=== PATIENT | female | born 1965 | race Caucasian/White ===

== ENCOUNTER 2016-02-02 22:24 | Inpatient (IN) | payer OTHER ==
[~2016-02-02] VITALS: Ht 167.6 cm; Wt 76.4 kg
[2016-02-02 23:30] VITALS: BP 110/88; PULSE 90; RESP 18; TEMP 97.9
[2016-02-03] MEDS ORDERED: LORazepam 2 MG/ML VIAL - age > 65 yrs IM PRN (00:15)
[2016-02-03] MEDS ORDERED: ALUMINUM/MAGNESIUM/SIMETH 30 ML CUP PO PRN (00:15)
[2016-02-03] MEDS ORDERED: MAGNESIUM HYDROXIDE SUSP 30 ML CUP PO PRN (00:15)
[2016-02-03 07:19] LABS: AUTOMATED NEUTROPHIL # 6.9 TH/MM3 (1.8-7.7); BASOPHIL # 0.1 TH/MM3 (0-0.2); BASOPHIL % 0.7 % (0.0-2.0); EOSINOPHIL # 0.1 TH/MM3 (0-0.4); EOSINOPHIL % 1.3 % (0.0-4.0); HEMATOCRIT 42.5 % (35.0-46.0); HEMO FLAGS DIFF FINAL; LYMPH % 26.4 % (9.0-44.0); LYMPHOCYTE # 2.8 TH/MM3 (1.0-4.8); MEAN CELL VOLUME 88.9 FL (80.0-100.0); MEAN CORPUSCULAR HGB CONC 33.8 % (32.0-36.0); MONO % 6.1 % (0.0-8.0); NEUT % 65.5 % (16.0-70.0); PLATELET COUNT 220 TH/MM3 (150-450); RED BLOOD COUNT 4.78 MIL/MM3 (4.00-5.30); RED CELL DISTRIBUTION WIDTH 15.6 % (11.6-17.2); WHITE BLOOD COUNT 10.6 TH/MM3 (4.0-11.0)
[2016-02-03 07:51] LABS: ALKALINE PHOSPHATASE 68 U/L (45-117); ALT (GPT) 15 U/L (10-53); ANION GAP 5 MEQ/L (5-15); AST (GOT) 11 U/L (15-37); BICARBONATE 27.2 MEQ/L (21.0-32.0); BLOOD UREA NITROGEN 24 MG/DL (7-18); CHLORIDE 106 MEQ/L (98-107); GLOMERULAR FILTRATION RATE 51 ML/MIN (>89); POTASSIUM 4.5 MEQ/L (3.5-5.1); SODIUM (NA) 138 MEQ/L (136-145); TOTAL BILIRUBIN ADULT 0.4 MG/DL (0.2-1.0)
[2016-02-03] MEDS: LORazepam 0.5 MG TAB age > 65 yrs PO PRN ×2 (08:43→08:49)
[2016-02-03] MEDS ORDERED: FLUTICASONE PROPIONATE 110 MCG/ACT 12 GM INHALER INH PRN (11:00)
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
[2016-02-03] MEDS: NICOTINE 21 MG/24 HR PATCH TD SCH ×2 (12:07→13:09)
[2016-02-03] MEDS: clonazePAM 0.5 MG TAB PO PRN (12:59)
--- NOTE | 2016-02-03 13:16 | PD.CONS ---
HPI Service [facility] Consult Requested By Dr. Solorzano Reason for Consult Decreased GFR Primary Care Physician No Primary Care Physician Diagnoses: History of Present Illness This is a 50-year-old female patient with past medical history which includes PTSD, bipolar, fibromyalgia chronic neck and back pain and gestational diabetes. Patient is currently an inpatient psychiatric center we have been consulted for decreased GFR. Laboratory data reviewed BUN 24 creatinine 1.14 estimated GFR 51. Patient does report she is very thirsty has not been drinking enough lately clinically appears dry with dry mucous membranes and sunken eyes. Patient denies dysuria or increased urinary frequency feels that she may be getting a UTI as she is not been drinking enough. Patient reports one episode of soft stool last night but denies diarrhea patient also denies nausea or vomiting, chest pain shortness of breath fevers or chills. Review of Systems Other All other systems reviewed and negative except as mentioned in history of present illness Past Family Social History Allergies: Coded Allergies: Benadryl (Verified Allergy, Intermediate, 02/03/16) VERIFIED WITH PATIENT Past Medical History PTSD, bipolar, fibromyalgia chronic neck and back pain and gestational diabetes Past Surgical History Cervical fusion, D&C Reported Medications 1. Amitriptyline 50 mg at bedtime 2. Klonopin 0.5 mg twice daily as needed for anxiety 3. Lexapro 20 mg daily 4. Flovent 2 puffs twice daily as needed for shortness of breath 5. Fluticasone 50 mcg per inhalation daily one spray daily 6. Latuda 80 mg daily with dinner 7. Mobic 15 mg daily 8. Tizanidine 4 mg every 8 hours as needed for muscle spasm 9. Trazodone 100 mg at bedtime Family History Both mother and sister have psychiatric illness Grandparents had diabetes mellitus 2 Father secondary to [place] Social History Patient denies EtOH use or illicit drug use Patient reports making 2 packs a day for the past 38 years Physical Exam Vital Signs Vital Signs Date Time Temp Pulse Resp B/P Pulse Ox O2 Delivery O2 Flow Rate FiO2 02/02/16 23:30 97.9 90 18 110/88 Physical Exam GENERAL: This is a well-nourished, well-developed patient, in no apparent distress. Clinically appears dry SKIN: No rashes, ecchymoses or lesions. Cool and dry. HEAD: Atraumatic. Normocephalic. No temporal or scalp tenderness. EYES: Appear sunken. Extraocular motions intact. No scleral icterus. No injection or drainage. ENT: Nose without bleeding, purulent drainage or septal hematoma. Throat without erythema, tonsillar hypertrophy or exudate. Uvula midline. Airway patent. Mucous membranes are dry NECK: Trachea midline. No JVD or lymphadenopathy. Supple, nontender, no meningeal signs. CARDIOVASCULAR: Regular rate and rhythm without murmurs, gallops, or rubs. RESPIRATORY: Clear to auscultation. Breath sounds equal bilaterally. No wheezes , rales, or rhonchi. GASTROINTESTINAL: Abdomen soft, non-tender, nondistended. No hepato-splenomegaly , or palpable masses. No guarding. MUSCULOSKELETAL: Extremities without clubbing, cyanosis, or edema. No joint tenderness, effusion, or edema noted. No calf tenderness. Negative Homans sign bilaterally. NEUROLOGICAL: Awake and alert. No focal deficits noted Motor and sensory grossly within normal limits. Five out of 5 muscle strength in all muscle groups. Soft speech. Laboratory Laboratory Tests Test 02/03/16 06:47 White Blood Count 10.6 Red Blood Count 4.78 Hemoglobin 14.4 Hematocrit 42.5 Mean Corpuscular Volume 88.9 Mean Corpuscular Hemoglobin 30.0 Mean Corpuscular Hemoglobin 33.8 Concent Red Cell Distribution Width 15.6 Platelet Count 220 Mean Platelet Volume 9.3 Neutrophils (%) (Auto) 65.5 Lymphocytes (%) (Auto) 26.4 Monocytes (%) (Auto) 6.1 Eosinophils (%) (Auto) 1.3 Basophils (%) (Auto) 0.7 Neutrophils # (Auto) 6.9 Lymphocytes # (Auto) 2.8 Monocytes # (Auto) 0.6 Eosinophils # (Auto) 0.1 Basophils # (Auto) 0.1 CBC Comment DIFF FINAL Differential Comment Sodium Level 138 Potassium Level 4.5 Chloride Level 106 Carbon Dioxide Level 27.2 Anion Gap 5 Blood Urea Nitrogen 24 Creatinine 1.14 Estimat Glomerular Filtration 51 Rate Random Glucose 99 Calcium Level 9.1 Total Bilirubin 0.4 Aspartate Amino Transf 11 (AST/SGOT) Alanine Aminotransferase 15 (ALT/SGPT) Alkaline Phosphatase 68 Total Protein 7.4 Albumin 3.8 Beta HCG, Qualitative LESS THAN 1 Result Diagram: 02/03/16 0647 02/03/16 0647 Assessment and Plan Assessment and Plan This is a 50-year-old female patient with past medical history which includes PTSD, bipolar, fibromyalgia chronic neck and back pain and gestational diabetes. Patient is currently an inpatient psychiatric center we have been consulted for decreased GFR. Laboratory data reviewed BUN 24 creatinine 1.14 estimated GFR 51. Decreased GFR likely psychiatric to dehydration Encouraged increase by mouth fluid intake add Gatorade and bottled water to each tray Recheck BMP in a.m. also check UA C&S if indicated Tobacco abuse Counseled patient on health risk of tobacco use encouraged patient to quit smoking Suicidal ideations, PTSD, bipolar- management per psychiatric team DVT prophylaxis patient is ambulatory Thank you for the consultation and for allowing us to dissipate. This patient. Discussed plan of care with patient and RN Written by Christina Urbano, acting as scribe for Dr. Neely on 02/03/16 at 13:20. The documentation accurately reflects the work performed [id number] by me on 02/03/16 at 13:20. Christina Urbano Feb 03, 2016 13:16 Hnoey Neely MD Feb 03, 2016 14:48
[2016-02-03 15:44] LABS: BACTERIA, URINE RARE /hpf; BLOOD, URINE NEG (NEG); COMMENT (UR) CULT NOT INDICATED; CULTURE IF INDICATED CULT NOT INDICATED; GLUCOSE,URINE NEG (NEG); HYALINE CAST, URINE 1 /lpf (RARE); KETONE, URINE NEG (NEG); MUCUS URINE FEW /lpf (OCC); NITRITE,URINE NEG (NEG); SQUAMOUS EPITHELIAL CELL URINE 5 /hpf (0-5); URINE COLOR YELLOW (YELLW/STRAW)
[2016-02-03] MEDS: LURASIDONE 80 MG TAB PO SCH (18:00)
[2016-02-03 19:25] VITALS: BP 105/72; PULSE 106; RESP 18; TEMP 98; O2SAT 98
[2016-02-03] MEDS: traZODone HCL 100 MG TAB PO SCH (21:00)
[2016-02-03] MEDS ORDERED: AMITRIPTYLINE HCL 50 MG TAB PO SCH (21:00)
[2016-02-04] MEDS: traZODone HCL 50 MG TAB PO PRN (00:18)
[2016-02-04] MEDS: clonazePAM 0.5 MG TAB PO PRN ×3 (01:12→23:15)
[2016-02-04] MEDS: ACETAMINOPHEN 325 MG TAB PO PRN ×2 (03:41→20:10)
[2016-02-04 05:57] VITALS: BP 118/84; PULSE 105; RESP 18; TEMP 98; O2SAT 100
[2016-02-04 07:56] LABS: BICARBONATE 27.1 MEQ/L (21.0-32.0); POTASSIUM 4.1 MEQ/L (3.5-5.1)
[2016-02-04] MEDS: ESCITALOPRAM OXALATE 20 MG TAB PO SCH (08:53)
[2016-02-04] MEDS: FLUTICASONE PROPIONATE 50 MCG/ACT 16 GM NASAL SPRAY NASAL SCH (08:54)
[2016-02-04] MEDS: NICOTINE 21 MG/24 HR PATCH TD SCH (08:54)
[2016-02-04] MEDS: REMOVE OLD PATCH TD SCH (09:00)
--- NOTE | 2016-02-04 10:33 | HHI.PYPN ---
Subjective Remarks Patient seen and examined with counselor and nursing staff. Chart reviewed. Case discussed with nursing staff who reports patient is upset that her Klonopin dose isn't higher. Patient leads off our discussion today with a request to titrate her Klonopin dose. I have reviewed her controlled substances database report with the patient and I note that she was receiving Klonopin 0.5 mg enough for [address] Duval and the dose was only increased to 1 mg 3 times a day by the physician who apparently saw the patient on the other inpatient psychiatric unit she had been hospitalized on. The prescriptions from Dr. Duval are of small quantity and there are gaps in the refill pattern. She complains of difficulty sleeping. Remains a little dysphoric. No SI or HI. No side effects from medications. Review of Systems Other No physical complaints today Objective Alert: Yes [place]: Person, Place, Date Mood: Calm Affect: Blunted (somewhat dysphoric) Memory Intact: Comment (seems intact on clinical exam) Hallucinations: Other (No AVH) Delusions: No Delusion Type: Other (No delusions) Suicidal: Ideation (Denies SI) Homicidal: Ideation (Denies HI) Insight/Judgement Fair Remarks No motoric abnormalities noted. TP linear, a little perseverative on the benzos. Labs Test 02/03/16 02/04/16 15:00 07:04 Urine Color YELLOW Urine Turbidity CLEAR Urine pH 6.0 Urine Specific [place] 1.020 Urine Protein NEG mg/dL Urine Glucose (UA) NEG mg/dL Urine Ketones NEG mg/dL Urine Occult Blood NEG Urine Nitrite NEG Urine Bilirubin NEG Urine Urobilinogen LESS THAN 2.0 MG/DL Urine Leukocyte Esterase TRACE Urine RBC 2 /hpf Urine WBC 4 /hpf Urine Squamous Epithelial 5 /hpf Cells Urine Bacteria RARE /hpf Urine Hyaline Casts 1 /lpf Urine Mucus FEW /lpf Microscopic Urinalysis Comment CULT NOT INDICATED Sodium Level 139 MEQ/L Potassium Level 4.1 MEQ/L Chloride Level 103 MEQ/L Carbon Dioxide Level 27.1 MEQ/L Anion Gap 9 MEQ/L Blood Urea Nitrogen 19 MG/DL Creatinine 1.03 MG/DL Estimat Glomerular Filtration 57 ML/MIN Rate Random Glucose 102 MG/DL Calcium Level 9.5 MG/DL Labs reviewed. GFR a little better. Urinalysis fairly bland. Vitals/IOs Vital Signs Date Time Temp Pulse Resp B/P Pulse Ox O2 Delivery O2 Flow Rate FiO2 02/04/16 05:57 98.0 105 18 118/84 100 Assessment & Plan Problem List: (1) Adjustment disorder with mixed disturbance of emotions and conduct ICD Code: F43.25 Assessment & Plan Patient is requesting additional hypnotic effect. I will titrate her Elavil to 75 mg at bedtime as this may help both with sleep and mood. Continue other medications as ordered. Appreciate hospitalist consult input. Continue other care as ordered. Patient may be transferred to [facility] unit. Justification for Cont. Inpt. Medication changes. Complicating conditions. Monitoring for safety, but no evidence of any deficit so far. Discharge Planning Monitor over the weekend. Request HC Surrog/Guard Advoc?: No Dilshad Solorzano MD Feb 04, 2016 10:33
--- NOTE | 2016-02-04 15:13 | HHI.PR ---
Subjective Remarks Follow-up for decreased GFR No overnight events, has been drinking water and Gatorade. No shortness of breath. Objective Vitals Vital Signs Date Time Temp Pulse Resp B/P Pulse Ox O2 Delivery O2 Flow Rate FiO2 02/04/16 05:57 98.0 105 18 118/84 100 02/03/16 19:25 98.0 106 18 105/72 98 Result Diagram: 02/03/16 0647 02/04/16 0704 Objective Remarks Not in distress, well-nourished, looks stated age PERRL, pink conjunctiva without injection, anicteric Nose without bleeding, airway patent, oropharynx clear Supple neck, no masses or thyromegaly, trachea midline Normal rate and regular rhythm, no murmurs gallops or rubs appreciated. Clear to auscultation and symmetric bilaterally, normal respiratory effort. Normal bowel sounds, soft, non-tender, nondistended, no guarding. Extremities without clubbing, cyanosis, or edema. No rash of generalized distribution. Skin is warm and dry. AAO x3, no cranial nerve deficits, moves all 4 extremities, no focal neurologic deficits Normal mood, appropriate affect A/P Assessment and Plan This is a 50-year-old female patient with past medical history which includes PTSD, bipolar, fibromyalgia chronic neck and back pain and gestational diabetes. Patient is currently an inpatient psychiatric center we have been consulted for decreased GFR. Laboratory data reviewed BUN 24 creatinine 1.14 estimated GFR 51. Decreased GFR likely psychiatric to dehydration Encouraged increase by mouth fluid intake, repeat GFR is stable and creatinine stable. Patient may have chronic kidney disease stage II, I doubt though with out proteinuria, encourage oral intake. Follow-up as outpatient. Tobacco abuse Counseled patient on health risk of tobacco use encouraged patient to quit smoking Suicidal ideations, PTSD, bipolar- management per psychiatric team DVT prophylaxis patient is ambulatory We will sign off. Please call with questions Honey Neely MD Feb 04, 2016 15:13
[2016-02-04] MEDS: LURASIDONE 80 MG TAB PO SCH (16:51)
[2016-02-04] MEDS: AMITRIPTYLINE HCL 75 MG TAB PO SCH (22:06)
[2016-02-04] MEDS: traZODone HCL 100 MG TAB PO SCH (22:06)
[2016-02-05 06:05] VITALS: BP 119/77; PULSE 90; RESP 18; TEMP 98.2; O2SAT 100
[2016-02-05] MEDS: NICOTINE 21 MG/24 HR PATCH TD SCH ×2 (09:00→10:24)
[2016-02-05] MEDS: REMOVE OLD PATCH TD SCH (09:00)
[2016-02-05] MEDS: FLUTICASONE PROPIONATE 50 MCG/ACT 16 GM NASAL SPRAY NASAL SCH (09:00)
[2016-02-05] MEDS: ESCITALOPRAM OXALATE 20 MG TAB PO SCH (09:23)
[2016-02-05] MEDS: ACETAMINOPHEN 325 MG TAB PO PRN (10:24)
[2016-02-05] MEDS: clonazePAM 0.5 MG TAB PO PRN (11:41)
--- NOTE | 2016-02-05 13:46 | HHI.PYPN ---
Subjective Remarks Patient seen and examined with nursing staff. Chart reviewed. Case discussed with nursing staff who reports patient is somewhat medication seeking for Klonopin. On my examination today, patient continues to complain of some anxiety, and we discuss nonmedication strategies for managing this. She is pleased to move to the lower acuity unit. She denies any SI or HI. She did sleep better with the adjustment in her Elavil dosing, and she denies side effects from medications. Hopeful for discharge tomorrow. Review of Systems Other No physical complaints today Objective Alert: Yes [place]: Person, Place, Date Mood: Calm Affect: Other (more reactive) Memory Intact: Comment (intact) Hallucinations: Other (no AVH) Delusions: No Delusion Type: Other (no delusional material) Suicidal: Ideation (denies suicidal ideation) Homicidal: Ideation (denies homicidal ideation) Insight/Judgement Fair Remarks Thought process linear. Speech within normal limits. Labs Labs reviewed. No new labs. Vitals/IOs Vital Signs Date Time Temp Pulse Resp B/P Pulse Ox O2 Delivery O2 Flow Rate FiO2 02/05/16 06:05 98.2 90 18 119/77 100 Assessment & Plan Problem List: (1) Adjustment disorder with mixed disturbance of emotions and conduct ICD Code: F43.25 Assessment & Plan Continue current psychotropics as ordered. Continue other medications and care as ordered. Justification for Cont. Inpt. Discharge planning Discharge Planning Monitor overnight Request HC Surrog/Guard Advoc?: No Dilshad Solorzano MD Feb 05, 2016 13:46
[2016-02-05] MEDS: LURASIDONE 80 MG TAB PO SCH (17:34)
[2016-02-05 18:00] VITALS: BP 124/95; PULSE 109; RESP 20; TEMP 99.1; O2SAT 99
[2016-02-05] MEDS: AMITRIPTYLINE HCL 75 MG TAB PO SCH (20:07)
[2016-02-05] MEDS: traZODone HCL 50 MG TAB PO PRN (20:10)
[2016-02-05] MEDS: traZODone HCL 100 MG TAB PO SCH (20:12)
[2016-02-06] MEDS: clonazePAM 0.5 MG TAB PO PRN ×2 (00:24→12:03)
[2016-02-06] MEDS: ACETAMINOPHEN 325 MG TAB PO PRN ×5 (00:31→20:28)
[2016-02-06 06:03] VITALS: BP 115/69; PULSE 105; RESP 18; TEMP 97.2
[2016-02-06] MEDS: ESCITALOPRAM OXALATE 20 MG TAB PO SCH (08:48)
[2016-02-06] MEDS: NICOTINE 21 MG/24 HR PATCH TD SCH (08:48)
[2016-02-06] MEDS: FLUTICASONE PROPIONATE 50 MCG/ACT 16 GM NASAL SPRAY NASAL SCH (08:49)
[2016-02-06] MEDS: REMOVE OLD PATCH TD SCH (09:00)
--- NOTE | 2016-02-06 14:02 | HHI.PYPN ---
Subjective Remarks Patient seen and examined with nursing staff. Chart reviewed. Case discussed with nursing staff. No behavioral problems reported. On my examination today, mood seems improved. Patient denies SI or HI or AVH. She denies side effects from medications. She is hopeful for discharge tomorrow. Review of Systems Other No physical complaints today Objective Alert: Yes [place]: Person, Place, Date Mood: Calm Affect: Other (fairly full and reactive today) Memory Intact: Comment (intact) Hallucinations: Other (denies) Delusions: No Delusion Type: Other (no delusions) Suicidal: Ideation (denies SI) Homicidal: Ideation (denies HI) Insight/Judgement Fair Remarks No abnormal motor movements noted. Labs Labs reviewed. No new labs. Vitals/IOs Vital Signs Date Time Temp Pulse Resp B/P Pulse Ox O2 Delivery O2 Flow Rate FiO2 02/06/16 06:03 97.2 105 18 115/69 02/05/16 18:00 99 Assessment & Plan Problem List: (1) Adjustment disorder with mixed disturbance of emotions and conduct ICD Code: F43.25 Assessment & Plan Continue current psychotropics as ordered. Continue other medications and care as ordered. Justification for Cont. Inpt. Monitor overnight. Discharge Planning Anticipate discharge tomorrow, Sunday barring some clinical worsening. Request HC Surrog/Guard Advoc?: No Dilshad Solorzano MD Feb 06, 2016 14:02
[2016-02-06 18:00] VITALS: BP 118/75; PULSE 100; RESP 17; TEMP 96.2; O2SAT 98
[2016-02-06] MEDS: LURASIDONE 80 MG TAB PO SCH (18:17)
[2016-02-06] MEDS: traZODone HCL 100 MG TAB PO SCH (20:15)
[2016-02-06] MEDS: AMITRIPTYLINE HCL 75 MG TAB PO SCH (20:15)
[2016-02-07] MEDS: clonazePAM 0.5 MG TAB PO PRN ×2 (00:06→12:03)
[2016-02-07] MEDS: ACETAMINOPHEN 325 MG TAB PO PRN ×2 (03:17→06:07)
[2016-02-07 06:04] VITALS: BP 92/66; PULSE 85; RESP 16; TEMP 97.4; O2SAT 97
[2016-02-07] MEDS: REMOVE OLD PATCH TD SCH (09:00)
[2016-02-07] MEDS: FLUTICASONE PROPIONATE 50 MCG/ACT 16 GM NASAL SPRAY NASAL SCH (09:10)
[2016-02-07] MEDS: ESCITALOPRAM OXALATE 20 MG TAB PO SCH (09:10)
[2016-02-07] MEDS: NICOTINE 21 MG/24 HR PATCH TD SCH (09:10)
[2016-02-07] MEDS ORDERED: LURA80 PO (10:16)
[2016-02-07] MEDS ORDERED: ESCI20TA PO (10:16)
[2016-02-07] MEDS ORDERED: Amitriptyline PO (10:16)
[2016-02-07] MEDS ORDERED: TRAZ50TA12 PO (10:16)
[2016-02-07] MEDS ORDERED: CLON.5 PO (10:16)
[2016-02-07] MEDS ORDERED: FLUTI110I INH (10:16)
[2016-02-07] MEDS ORDERED: FLUT50SP NASAL (10:16)
[2016-02-07] MEDS ORDERED: TIZA4 PO (10:16)
--- NOTE | 2016-02-07 10:16 | HHI.DS ---
Psychiatry Discharge Summary Inpatient Psychiatric care?: Yes Advance Directive: No Mental Health AdvanceDirective: No Health Care Proxy: No Admission Admission Date Feb 02, 2016 at 23:30 Admission Diagnosis: (1) Adjustment disorder with mixed disturbance of emotions and conduct ICD Code: F43.25 Brief History Ms. Tiwari is a 50-year-old female with a reported history of PTSD and bipolar disorder who presents to us in transfer from [facility] under a [place] ACT by [facility]'s Office alleging that Ms. Tiwari fled from her residence and told her mother that she was going to take all of her medications to kill herself. Officer also alleges that the patient told the officer that she was going to take her medications in excess since she did not want to live any more. I reviewed her documentation from outside hospital. Reviewing our electronic medical record here reviewed, it appears this is the patient's first visit to [facility]. The patient seen and examined with counselor Moraima and nurse Sav. Chart reviewed. Case discussed with nursing staff on the inpatient psychiatric unit. On my examination today, the patient presents as somewhat dysphoric. She says that she was just discharged from another inpatient psychiatric unit following a brief stay on the . She says that she went home to her house and got into an argument with her sister who she maintains is a drug addict. She says that she got upset and threatened to overdose on her medications to her mother because she was tired of her conflict with her sister. She denies any suicidal intent at that time. She denies any suicidal ideation now. She is somewhat dysphoric as I said and endorses poor sleep and seems anhedonic. She describes her inner mood state as agitated. No hopelessness, worthlessness or morbid guilt. She wants to live for her children and denies any homicidal ideation. She denies any audiovisual hallucinations and I can elicit no delusional beliefs. No hypomanic or manic symptoms evident at this time. The remainder of the psychiatric ROS is negative. Tobacco Use In Past 30 Days: 5 or More Cigarettes/Day Alcohol Use: Never Hospital Course Patient was admitted to a locked, inpatient psychiatric unit. A general medical consultation was obtained. Appropriate precautions were in place throughout patient's hospital stay. Patient was seen and examined daily on the unit by psychiatry and also visited by counselor. Medications were adjusted. Patient tolerated medications well without side effects. Patient had improvement in her presenting psychiatric symptomatology during the course of her hospital stay. There was no evidence of any suicidality or homicidality on the inpatient unit. Patient remained in good behavioral control and was medication compliant. She was able to be transferred to the lower acuity inpatient psychiatric unit. Collateral was obtained from patient's mother by the counselor. On the day of discharge: Case discussed with nursing staff. Per nursing staff, no behavioral issues noted. I note on review of the chart that the patient has been eating well and sleep has been fair. On my examination today, the patient presents as in good spirits. She requests that she be discharged from the inpatient psychiatric unit. She denies any SI or HI. She denies any AVH, and I can elicit no delusions. She is future oriented. She feels that her mood has subjectively improved. She is tolerating medications well without side effects. She has no physical complaints. Weighing the acute, chronic, and protective factors and based on the available evidence, I extruding press operator to a reasonable degree of medical certainty that the patient is at low imminent risk of harm to self or others from a mental illness as defined under the [place] act, and her level of function is adequate for outpatient care. Patient has maximized benefit from this inpatient psychiatric hospital stay. She will be discharged today in stable condition with psychiatric follow-up as arranged by counselor. Patient is also to follow-up with primary care. I have counseled the patient regarding warning signs for need to return to the psychiatric emergency room as part of the general safety plan. I have cautioned the patient in particular not to combine benzodiazepines with alcohol or opiates or other sedating medications or drugs. Patient reports that she has an adequate supply of all of her medications and so I will provide her only with the change to medication, namely the larger dose of Elavil. Results Blood Pressure 103/71 Vital Signs Date Time Temp Pulse Resp B/P Pulse Ox O2 Delivery O2 Flow Rate FiO2 02/07/16 06:04 97.4 85 16 97 Item Value Date Time White Blood Count 10.6 TH/MM3 02/03/16 0647 Hemoglobin 14.4 GM/DL 02/03/16 0647 Platelet Count 220 TH/MM3 02/03/16 0647 Sodium Level 139 MEQ/L 02/04/16 0704 Potassium Level 4.1 MEQ/L 02/04/16 0704 Chloride Level 103 MEQ/L 02/04/16 0704 Carbon Dioxide Level 27.1 MEQ/L 02/04/16 0704 Blood Urea Nitrogen 19 MG/DL H 02/04/16 0704 Creatinine 1.03 MG/DL H 02/04/16 0704 Aspartate Amino Transf (AST/SGOT) 11 U/L L 02/03/16 0647 Alanine Aminotransferase (ALT/SGPT) 15 U/L 02/03/16 0647 Alkaline Phosphatase 68 U/L 02/03/16 0647 Beta HCG, Qualitative LESS THAN 1 MIU/ML 02/03/16 0647 Summary of Procedures None done Imaging None done Pending results at discharge: No Medications # of Antipsychotic meds at D/C: 0 Approp Antipsych med options 1 - Minimum of three failed multiple trials of monotherapy. 2 - Documented plan to taper to monotherapy due to previous use of multiple meds OR cross-taper in progress at D/C. 3 - Documentation of augmentation of Clozapine. 4 - Justification other than those listed in allowable values 1-3, document here : Discharge Discharge Date: Feb 07, 2016 Discharge Diagnosis: (1) Adjustment disorder with mixed disturbance of emotions and conduct Diagnosis: Principal (stable) ICD Code: F43.25 GAF on discharge is 60 Mental Status Exam at Disch Patient is casually dressed. She is well groomed. She is awake and alert and oriented 3. No motoric abnormalities noted. Speech is within normal limits for rate, tone and volume. Language and fund of knowledge seem adequate and appropriate for age. Mood is reportedly improved versus admission and affect is fairly full and reactive. Thought process linear. No loosening of associations. No evident delusions. Denies audiovisual hallucinations. Denies suicidal or homicidal ideation. Insight and judgment are fair. Pt Condition on Discharge: Stable Discharge Disposition: Discharge Home Discharge Instructions Diet Instructions: As Tolerated, No Restrictions Activities you can perform: Weight Bearing as Arnoldo Scheduled Appointment: Jaylen Oliva Appointment Date: Feb 22, 2015 Appointment Time: 08:00 New Orders: BASIC METABOLIC PROF - 1 Week New Medications: Clonazepam (Klonopin) 0.5 Mg Tab 0.5 MG PO Q12HR Order is to update med rec only. Pt has adequate supply at home. PRN Anxiety Days 0 Ref 0 TAB Escitalopram (Escitalopram) 20 Mg Tab 20 MG PO DAILY Order is to update med rec only. Pt has adequate supply at home. Mental Health Days 0 Ref 0 TAB Fluticasone 12 GM Inh (Flovent Hfa 12 GM Inh) 110 Mcg/Act Inh 2 PUFF INH BID Order is to update med rec only. Pt has adequate supply at home. PRN SHORTNESS OF BREATH Days 0 Ref 0 INHALER Fluticasone Nasal [place] (Fluticasone Nasal [place]) 50 Mcg/Act Naspr 1 SPRAY NASAL DAILY Order is to update med rec only. Pt has adequate supply at home. Health Days 0 Ref 0 BOTTLE Lurasidone (Latuda) 80 Mg Tab 80 MG PO WITH DINNER Order is to update med rec only. Pt has adequate supply at home. Mental Health Days 0 Ref 0 TAB Tizanidine (Zanaflex) 4 Mg Tab 4 MG PO Q8H Order is to update med rec only. Pt has adequate supply at home. PRN Muscle spasm Days 0 Ref 0 TAB Trazodone (Trazodone) 50 Mg Tab 100 MG PO HS Order is to update med rec only. Pt has adequate supply at home. Insomnia Days 0 Ref 0 TAB ([Amitriptyline]) 75 MG TAB 75 MG PO HS Mental Health Days 15 Ref 1 TAB Discharge Time <= 30 minutes Discharge/Advance Care Plan Health Problems: (1) Adjustment disorder with mixed disturbance of emotions and conduct Goals to promote your health * To prevent worsening of your condition and complications * To maintain your health at the optimal level Directions to meet your goals Take your medications as prescribed Follow your dietary instruction Follow activity as directed Keep your appointments as scheduled Take your immunizations and boosters as scheduled If your symptoms worsen call your PCP, if no PCP go to Urgent Care Center or Emergency Room For 28/08 questions related to your inpatient stay or results of tests pending at discharge, please contact Dr. Dilshad Solorzano at Smoking is Dangerous to Your Health. Avoid second hand smoking Dilshad Solorzano MD Feb 07, 2016 10:16
[2016-02-07 10:17] VITALS: BP 103/71
== END 2016-02-07 15:25 | disposition home or self-care (01) | DRG 882 ==
LOC: H260 23:30 → H270 02-03 00:31 → H260 02-04 18:37
PROVIDERS: ADMIT Psychiatry & Neurology Psychiatry; ATTEND Psychiatry & Neurology Psychiatry
DX: F43.25 Adjustment disorder with mixed disturbance of emotions and conduct (principal); R45.851 Suicidal ideations; E86.0 Dehydration; F41.9 Anxiety disorder, unspecified; G89.29 Other chronic pain; M79.7 Fibromyalgia; M54.2 Cervicalgia; M54.9 Dorsalgia, unspecified; F17.210 Nicotine dependence, cigarettes, uncomplicated; F43.10 Post-traumatic stress disorder, unspecified; F31.9 Bipolar disorder, unspecified; N28.9 Disorder of kidney and ureter, unspecified; Z91.5 Personal history of self-harm
CPT/HCPCS: 80048; 80053; 81001; 84703; 85025